=== PATIENT | female | born 1995 | race African-American/Black ===

== ENCOUNTER 2020-09-02 18:14 | Inpatient (IN) | payer SELFPAY ==
[~2020-09-02] VITALS: Ht 165.1 cm; Wt 70.0 kg
[2020-09-02] MEDS ORDERED: SODIUM CHLORIDE 0.9% 1,000 ML IV ONE (18:45)
[2020-09-02] MEDS ORDERED: METOCLOPRAMIDE HCL 10MG/2ML VIAL IV ONE (18:45)
[2020-09-02 19:15] LABS: CLARITY URINE CLEAR (CLEAR); COLOR URINE DARK YELLOW (YELLOW); KETONES URINE 1+ (NEGATIVE); LEUKOCYTE ESTERASE URINE NEGATIVE (NEGATIVE); NITRITE URINE NEGATIVE (NEGATIVE); OCCULT BLOOD URINE 2+ (NEGATIVE); PH URINE 5.5 (4.5-8.0); PROTEIN URINE 2+ (NEGATIVE); SPECIFIC GRAVITY URINE 1.029 (1.005-1.030); UROBILINOGEN URINE 0.2 E.U./dL (0.2-1.0)
[2020-09-02 19:16] LABS: MEAN CORPUSCULAR HEMOGLOBIN 34.1 pg (28.0-32.0); MEAN CORPUSCULAR VOLUME 98.9 fL (81.0-99.0); PLATELET 79 x1000/uL (130-400); RED BLOOD CELL COUNT 1.77 mill/uL (4.2-5.4)
[2020-09-02 19:17] LABS: HEMOGLOBIN. 6.1 g/dL (12.0-16.0)
[2020-09-02 19:18] LABS: HEMATOCRIT. 17.6 % (36.0-48.0)
[2020-09-02 19:22] LABS: CHLORIDE 106 mEq/L (98-107)
[2020-09-02 19:38] LABS: PLATELET ESTIMATE DECREASED
[2020-09-02 19:45] LABS: B-HCG QUANTITATIVE 4366 mIU/mL (<3)
[2020-09-02 20:31] LABS: FOLIC ACID (FOLATE) SERUM 11.7 ng/mL (>5.38)
[2020-09-02] MEDS ORDERED: ACETAMINOPHEN 500MG TABLET PO NR (21:30)
[2020-09-02] MEDS ORDERED: CEFTRIAXONE 1 G PREMIX 50 ML IV ONE (23:15)
[2020-09-03] MEDS: LACTATED RINGERS 1,000 ML IV SCH ×4 (01:00→22:46)
[2020-09-03 02:09] LABS: *AMPHETAMINES SCREEN URINE NEGATIVE (NEGATIVE); *BARBITURATES SCREEN URINE NEGATIVE (NEGATIVE)
[2020-09-03 02:15] LABS: *BENZODIAZEPINES SCREEN URINE NEGATIVE (NEGATIVE)
[2020-09-03 02:26] LABS: METHADONE URINE SCREEN NEGATIVE (NEGATIVE); OPIATES URINE SCREEN NEGATIVE (NEGATIVE)
[2020-09-03 03:19] LABS: *COCAINE SCREEN URINE NEGATIVE (NEGATIVE)
[2020-09-03 03:20] LABS: PHENCYCLIDINE URINE SCREEN NEGATIVE (NEGATIVE)
[2020-09-03 03:21] LABS: CANNABINOID URINE SCREEN PRESUMTIVE POSITIVE (NEGATIVE)
[2020-09-03 08:33] LABS: BASOPHILS % 0.3 % (0.0-2.0); EOSINOPHILS % 0.3 % (0.0-5.0); LYMPHOCYTES % 9.8 % (20.0-50.0); MEAN PLATELET VOLUME 8.5 fl (7.4-10.4); MONOCYTES % 5.9 % (2.0-8.0); NEUTROPHILS % 83.7 % (40.0-76.0); PLATELET 57 x1000/uL (130-400); RED BLOOD CELL COUNT 2.06 mill/uL (4.2-5.4); RED CELL DISTRIBUTION WIDTH 16.9 % (11.6-14.6)
[2020-09-03 09:00] LABS: HEMOGLOBIN. 6.4 g/dL (12.0-16.0)
[2020-09-03] MEDS ORDERED: DOCUSATE SODIUM 100MG CAPSULE PO SCH (09:00)
[2020-09-03] MEDS: PRENATAL VIT/FE FUMARATE/FA TABLET PO SCH (09:00)
[2020-09-03 15:30] LABS: BASOPHILS % 0.2 % (0.0-2.0); EOSINOPHILS % 0.4 % (0.0-5.0); HEMATOCRIT. 21.8 % (36.0-48.0); HEMOGLOBIN. 7.6 g/dL (12.0-16.0); LYMPHOCYTES % 10.8 % (20.0-50.0); MEAN CORPUSCULAR HEMOGLOBIN 32.1 pg (28.0-32.0); MEAN PLATELET VOLUME 8.7 fl (7.4-10.4); MONOCYTES % 7.8 % (2.0-8.0); NEUTROPHILS % 80.8 % (40.0-76.0); PLATELET 56 x1000/uL (130-400); RED BLOOD CELL COUNT 2.37 mill/uL (4.2-5.4); RED CELL DISTRIBUTION WIDTH 16.2 % (11.6-14.6)
[2020-09-03] MEDS: BUTORPHANOL TARTRATE 2 MG/ML VIAL IV PRN (21:00)
[2020-09-04] MEDS: BUTORPHANOL TARTRATE 2 MG/ML VIAL IV PRN ×2 (02:48→06:49)
[2020-09-04] MEDS: LACTATED RINGERS 1,000 ML IV SCH (06:32)
[2020-09-04] MEDS ORDERED: MORPHINE SULFATE 2 MG/ML CPJ (NOT FOR IM USE) IV PRN (09:30)
[2020-09-04] MEDS: DEXT 5%/LR + PITOCIN 20UNITS/L 1,000 ML IV SCH (19:40)
[2020-09-04] MEDS ORDERED: DEXT 5%/LR + PITOCIN 20UNITS/L 1,000 ML IV ONE (19:47)
[2020-09-04] MEDS ORDERED: DEXT 5%/LR + PITOCIN 20UNITS/L 1,000 ML IV SCH (21:15)
[2020-09-04] MEDS ORDERED: IBUPROFEN 800MG TABLET PO PRN (23:45)
[2020-09-04] MEDS ORDERED: IBUPROFEN 400MG TABLET PO PRN (23:45)
[2020-09-05] VITALS (11 sets, daily range): BP systolic 105–125; BP diastolic 60–69
[2020-09-05] MEDS: DEXT 5%/LR + PITOCIN 20UNITS/L 1,000 ML IV SCH (00:52)
[2020-09-05 05:46] LABS: BASOPHILS % 0.1 % (0.0-2.0); LYMPHOCYTES % 17.5 % (20.0-50.0); MEAN CORPUSCULAR HEMOGLOBIN 32.9 pg (28.0-32.0); MEAN CORPUSCULAR VOLUME 93.9 fL (81.0-99.0); MEAN PLATELET VOLUME 9.1 fl (7.4-10.4); NEUTROPHILS % 71.4 % (40.0-76.0); PLATELET 53 x1000/uL (130-400); RED CELL DISTRIBUTION WIDTH 15.7 % (11.6-14.6)
[2020-09-05 06:22] LABS: HEMATOCRIT. 11.3 % (36.0-48.0)
[2020-09-05 10:45] LABS: HEPATITIS B SURFACE ANTIGEN NEGATIVE
[2020-09-05] MEDS ORDERED: CEFAZOLIN 1000MG PREMIX 50 ML IV SCH (15:00)
[2020-09-05 15:34] LABS: MEAN CORPUSCULAR HEMOGLOBIN 31.2 pg (28.0-32.0); PLATELET 67 x1000/uL (130-400); RED BLOOD CELL COUNT 2.25 mill/uL (4.2-5.4); RED CELL DISTRIBUTION WIDTH 14.7 % (11.6-14.6)
[2020-09-05 15:44] LABS: HEMATOCRIT 20.3 % (36.0-48.0)
[2020-09-06 04:00] VITALS: BP 118/77
[2020-09-06] MEDS ORDERED: IBUP-2028 PO (06:05)
[2020-09-06 07:26] VITALS: BP 128/82
[2020-09-06 08:48] LABS: BASOPHILS % 0.2 % (0.0-2.0); EOSINOPHILS % 1.5 % (0.0-5.0); LYMPHOCYTES % 13.1 % (20.0-50.0); MEAN CORPUSCULAR VOLUME 90.4 fL (81.0-99.0); MEAN PLATELET VOLUME 8.1 fl (7.4-10.4); MONOCYTES % 7.9 % (2.0-8.0); NEUTROPHILS % 77.3 % (40.0-76.0); PLATELET 92 x1000/uL (130-400); RED BLOOD CELL COUNT 2.25 mill/uL (4.2-5.4); RED CELL DISTRIBUTION WIDTH 15.7 % (11.6-14.6)
[2020-09-06] MEDS: PRENATAL VIT/FE FUMARATE/FA TABLET PO SCH (09:17)
[2020-09-06 09:29] LABS: HEMATOCRIT. 20.4 % (36.0-48.0)
== END 2020-09-06 09:05 | disposition home or self-care (01) | DRG 560 ==
LOC: ER 18:14 → EDBEDREQ 22:05 → 8 EST A/PP 22:52 → EDBEDREQ 23:05 → CANRESERV 23:19 → ENRESERV 23:19 → UNDODISIN 09-03 10:15
PROVIDERS: ADMIT Obstetrics & Gynecology; ATTEND Obstetrics & Gynecology
PROC: 30233N1 Transfusion of Nonautologous Red Blood Cells into Peripheral Vein, Percutaneous Approach (ICD-10-PCS; 2020-09-02)
PROC: 10E0XZZ Delivery of Products of Conception, External Approach (ICD-10-PCS; principal; 2020-09-05)
DX: O42.912 Preterm premature rupture of membranes, unspecified as to length of time between rupture and onset of labor, second trimester (principal); D69.6 Thrombocytopenia, unspecified; O36.4XX0 Maternal care for intrauterine death, not applicable or unspecified; O45.92 Premature separation of placenta, unspecified, second trimester; D62 Acute posthemorrhagic anemia; Z37.1 Single stillbirth; O99.02 Anemia complicating childbirth; B00.9 Herpesviral infection, unspecified; A05.9 Bacterial foodborne intoxication, unspecified; Z3A.21 21 weeks gestation of pregnancy
CPT/HCPCS: 36415; 76805; 80053; 80305; 81003; 82746; 83010; 83540; 83550; 83615; 83880; 84443; 84484; 84702; 85025; 85027; 86592; 86703; 86762; 86850; 86900; 86920; 87340; 88307; 93005; 99281; 99291; J0595; J0690; J0696; J2270; J2590; J2765; J7030; J7120; P9016; A4315